=== PATIENT | female | born 1995 | race Caucasian/White ===

== ENCOUNTER 2021-07-03 17:46 | Emergency (ER) | payer BC ==
[~2021-07-03] VITALS: Ht 165.1 cm; Wt 72.6 kg
[2021-07-03] MEDS ORDERED: ZOFRAN ODT4 MG DISSOLVE ×2 (18:17→19:02)
[2021-07-03 18:45] VITALS: BP 124/71
[2021-07-03] MEDS ORDERED: BENTYL 10 MG CA10 M1 PO (19:02)
== END 2021-07-03 18:49 | disposition home or self-care (01) ==
LOC: M.ERS 17:46
DX: R11.2 Nausea with vomiting, unspecified (principal); R19.7 Diarrhea, unspecified